=== PATIENT | male | born 1980 | race Caucasian/White ===

== ENCOUNTER 2017-12-01 11:37 | Emergency (ER) | payer MEDICAID ==
[~2017-12-01] VITALS: Ht 172.7 cm; Wt 63.4 kg
[~2017-12-01 11:37] MED LIST: DEXT15DR7 EACHEYE; IBUP-1051 PO; NO HOME MEDS
[2017-12-01 11:50] VITALS: BP 117/83
[2017-12-01] MEDS ORDERED: TRIA15CR61 TOP (12:43)
== END 2017-12-01 12:52 | disposition home or self-care (01) ==
LOC: ER 11:38
DX: R21 Rash and other nonspecific skin eruption (principal); F15.10 Other stimulant abuse, uncomplicated; M79.641 Pain in right hand; R22.31 Localized swelling, mass and lump, right upper limb; E11.9 Type 2 diabetes mellitus without complications; F17.200 Nicotine dependence, unspecified, uncomplicated; F12.10 Cannabis abuse, uncomplicated; Z79.899 Other long term (current) drug therapy
CPT/HCPCS: 99283

== ENCOUNTER 2019-10-10 09:35 | Emergency (ER) | payer MEDICAID ==
[~2019-10-10] VITALS: Ht 172.7 cm; Wt 68.8 kg
[2019-10-10] MEDS ORDERED: normal saline 1000ML IV soln IVB ONE ×2 (10:30→11:05)
[2019-10-10 10:42] LABS: CLARITY,URINE CLEAR (Clear); COLOR,URINE YELLOW (Yellow); GLUCOSE, URINE >=1000 mg/dl (Neg); KETONES,URINE >=80 mg/dl (Neg); LEUKOCYTE ESTERASE ,URINE NEGATIVE (Neg); NITRITES, URINE NEGATIVE (Neg); OCCULT BLOOD,URINE NEGATIVE (Neg); PROTEIN,URINE NEGATIVE (Neg); UROBILINOGEN,URINE 0.2 E.U/dL (0.2-1.0)
[2019-10-10 10:47] LABS: UA COLLECTION TYPE CLN CATCH MIDSTREAM
[2019-10-10 10:48] LABS: BACTERIA,URINE NONE SEEN /HPF (Neg); MUCUS STRANDS NONE SEEN /LPF (Neg); RBC,URINE 0-2 /HPF (0-2); SQUAMOUS EPITHELIAL CELL,UR NONE SEEN /LPF (FEW); WBC,URINE NONE SEEN /HPF (0-4)
[2019-10-10 10:49] LABS: BASOPHILS % (AUTO) 0.5 % (0-1); EOSINOPHILS # (AUTO) 0.1 X10'3 (0-0.9); EOSINOPHILS % (AUTO) 1.8 % (0-6); HEMOGLOBIN 17.8 g/dl (14.0-17.9); LYMPHOCYTES # (AUTO) 1.8 X10'3 (1.1-4.8); LYMPHOCYTES % (AUTO) 30.8 % (21-51); MEAN CORPUSCULAR HEMOGLOBIN 30.8 PG (27.0-31.0); MEAN CORPUSCULAR HGB CONC 34.2 g/dL (33.0-36.5); MEAN CORPUSCULAR VOLUME 89.9 FL (78-98); MEAN PLATELET VOLUME 8.8 FL (7.4-10.4); MONOCYTES # (AUTO) 0.5 X10'3 (0-0.9); MONOCYTES % (AUTO) 8.4 % (2-12); NEUTROPHILS # (AUTO) 3.4 X10'3 (1.8-7.7); NEUTROPHILS % (AUTO) 58.5 % (42-75); PLATELET COUNT 245 X10'3 (140-440); RED BLOOD COUNT 5.78 X10'6 (4.70-6.10); RED CELL DISTRIBUTION WIDTH 13.1 % (11.5-14.5); WHITE BLOOD COUNT 5.7 X10'3 (4.5-11.0)
[2019-10-10 10:52] LABS: ALANINE AMINOTRANSFERASE 31 U/L (12-78); ALBUMIN 3.8 G/DL (3.4-5.0); ALBUMIN/GLOBULIN RATIO 1.1 (1.1-1.5); ALKALINE PHOSPHATASE 84 IU/L (46-116); ANION GAP 9 (8-16); ASPARTATE AMINO TRANSFERASE 15 U/L (10-37); BILIRUBIN,TOTAL 0.6 MG/DL (0.1-1.0); BLOOD UREA NITROGEN 11 MG/DL (7-18); BUN/CREATININE RATIO 12.1 (5.4-32.0); CHLORIDE 96 MMOL/L (99-107); CREATININE 0.91 MG/DL (0.60-1.10); GLUCOSE 394 MG/DL (70-104); LIPASE 250 U/L (73-393); POTASSIUM 4.5 MMOL/L (3.5-5.1); SODIUM 134 MMOL/L (135-145); TOTAL CARBON DIOXIDE 28.9 MMOL/L (24-32); TOTAL PROTEIN 7.4 G/DL (6.4-8.2); eGFR > 90 ML/MIN
[2019-10-10] MEDS ORDERED: insulin regular, human 10 units/0.1 ml syringe SQ ONE (11:00)
[2019-10-10] MEDS ORDERED: insulin regular, human U-100 3ml vial - multi-dose SQ ONE ×2 (11:00→12:15)
[2019-10-10] MEDS ORDERED: INSU100I31 SQ (12:38)
[2019-10-10] MEDS ORDERED: INSU100I39 SQ (12:38)
[2019-10-10 13:33] VITALS: BP 120/78
== END 2019-10-10 13:43 | disposition home or self-care (01) ==
LOC: ER 09:36
DX: E11.65 Type 2 diabetes mellitus with hyperglycemia (principal); Z76.0 Encounter for issue of repeat prescription; F17.210 Nicotine dependence, cigarettes, uncomplicated; F12.90 Cannabis use, unspecified, uncomplicated; F15.90 Other stimulant use, unspecified, uncomplicated; Z79.899 Other long term (current) drug therapy
CPT/HCPCS: 36415; 80053; 81001; 82948; 83690; 85025; 96360; 96361; 96372; 99284; J7030; J1815

== ENCOUNTER 2019-11-11 09:58 | Emergency (ER) | payer MEDICAID ==
[~2019-11-11] VITALS: Ht 172.7 cm; Wt 68.0 kg
[~2019-11-11 09:58] MED LIST changes: +INSU100I31 SQ; +INSU100I39 SQ
--- NOTE | 2019-11-11 10:22 | NUR ---
Provider is at the bedside with the patient.
[2019-11-11] MEDS ORDERED: INSU100I31 SQ (10:34)
[2019-11-11] MEDS ORDERED: INSU100I39 SQ (10:34)
[2019-11-11] MEDS ORDERED: GABA600T13 PO (10:34)
[2019-11-11] MEDS ORDERED: TRAZ-256 PO (10:35)
[2019-11-11 11:07] VITALS: BP 149/98
== END 2019-11-11 10:51 | disposition home or self-care (01) ==
LOC: ER 09:58
DX: E11.40 Type 2 diabetes mellitus with diabetic neuropathy, unspecified (principal); F12.90 Cannabis use, unspecified, uncomplicated; F15.90 Other stimulant use, unspecified, uncomplicated; Z76.0 Encounter for issue of repeat prescription; Z79.899 Other long term (current) drug therapy; Z79.4 Long term (current) use of insulin
CPT/HCPCS: 82948; 99282

== ENCOUNTER 2025-03-05 13:43 | Emergency (ER) | payer BC, MEDICAID ==
[~2025-03-05] VITALS: Ht 172.7 cm; Wt 105.6 kg
[~2025-03-05 13:43] MED LIST changes: +GABA-1405 PO; +TRAZ-256 PO
[2025-03-05 13:49] VITALS: BP 119/87; PULSE 76; TEMP 98.6; O2SAT 97
--- NOTE | 2025-03-05 15:04 | RADIOLOGY REPORT ---
EXAM: DI HAND,LIMITED (AP/LAT) REASON FOR EXAM: TRauma and laceration TECHNIQUE: PA and lateral views of the left hand are submitted for review. COMPARISON: None FINDINGS: There is acute, nondisplaced fracture of the distal tuft of the 4th distal phalanx. There is no retained radiopaque foreign body. There is mild soft tissue swelling at the distal aspect of th e 4th finger. IMPRESSION: Acute nondisplaced fracture of the distal tuft of the 4th distal phalanx.
[2025-03-05] MEDS: LIDOcaine 1% 30ml preserv. free vial IJ STA (15:42)
--- NOTE | 2025-03-05 15:47 | Physician Documentation ---
History of Present Illness ~ Chief Complaint: Laceration Stated Complaint: FINGER LAC Time Seen by MD: 14:37 Primary Medical Doctor: shahbaz [facility] Patient is a 44-year-old gentleman that presents to the emergency department for evaluation of a laceration to the ring finger of his left hand. Patient reports that he was working on his quad earlier today when he caught his finger between the chain in the spoke lacerating the finger and causing trauma to the the distal end of the finger. Patient reports the bleeding is currently controlled. Patient reports he is not up-to-date on his tetanus immunization. Tetanus Within 5 Years: No Medication Reconciliation Allergies: Coded Allergies: No Known Allergies (Unverified , 11/12/10) Scheduled Dextran 70/Hypromellose (Artificial Tears Eye Drops), 1 DROP EACHEYE QID Gabapentin (Gabapentin), 1 TAB PO Q8H Insulin Glargine,Hum.rec.anlog (Basaglar Kwikpen U-100), 40 UNIT SQ DAILY Insulin Glargine,Hum.rec.anlog (Basaglar Kwikpen U-100), 40 UNIT SQ HS Insulin Lispro (Admelog Solostar), 10 UNIT SQ AC Insulin Lispro (Admelog Solostar), 10 UNITS SQ TIDWM Trazodone HCl (Trazodone HCl), 1 TAB PO HS Scheduled PRN Ibuprofen* (Motrin*), 800 MG PO TID PRN Miscellaneous Medications Home Med List (No Home Medications), (Reported) Past Medical History Past Medical History: Diabetes Past Surgical History: no surgical history Alcohol Use: None Drug Use: marijuana, methamphetamine Lives with: Family Lives In: Home Occupation: employed Review of Systems ROS As stated above in the HPI, otherwise all systems are reviewed and negative. Physical Exam Vital Signs: Temperature: 98.6, Source: Temporal, Heart Rate: 76, Respiratory Rate: 15, BP: 119/87, Pulse Oximetry: 97, Weight: 105.600 Physical Exam VITALS: Reviewed and as above. GENERAL: Alert, no apparent distress. HEENT: Normocephalic, atraumatic, PERRL, EOMI, dry mucosa, no erythema RESPIRATORY: Lungs clear, normal breath sounds, no respiratory distress. CHEST: No accessory muscle use, no retractions CV: Regular rate, rhythm, no edema, no murmur, No: JVD GI: Soft, non-tender, bowels sounds present, no rebound, guarding, or rigidity BACK: No CVA tenderness, or swelling MUSCULOSKELETAL No deformities, edema to the 3rd digit of the left hand associated with trauma. SKIN: Warm and dry, laceration to the 3rd digit of the left hand, swelling to the 3rd digit of the left hand. NEURO: Oriented x4, No motor or sensory deficit PSYCH: Normal mood and affect, no agitation Procedures Laceration/Wound Repair Laceration : Length (cm): 1.25 Anesthesia: Lidocaine Prep: betadine, irrigated by nurse, irrigated by physician, scrubbed Irrigated w/ Saline (mls): 100 Debrided: minimal Undermining: none Margins: flaps aligned Foreign Body: not identified Repaired: skin, subcutaneous Wound Repaired With: sutures Suture Size/Type: 4-0, nylon Number of Superficial Sutures: 5 Dressing Applied: simple Splint Applied?: Yes Type of Splint Applied: Aluminum finger splint Tolerated Procedure Well?: yes, no complications Progress Results/Orders Results/Orders Orders - MARYA GAR AUDIO VIDEO TECH Hand,Limited (Ap/Lat) (03/05/25 14:42) Completed Orders - MARYA GAR AUDIO VIDEO TECH Hand,Limited (Ap/Lat) (03/05/25 14:42) Lidocaine 1% 30ml Vial (Xylocaine 1% Via (03/05/25 14:51) Vital Signs 03/05/25 13:49 Temp 98.6 Pulse 76 Resp 15 B/P (MAP) 119/87 Pulse Ox 97 Medical Decision Making Findings Wound inspected under direct bright light with good visualization. Area with linear laceration across soft tissue through adipose without exposure of muscle belly or tendon. No overt foreign body. Area hemostatic. Neurovascular exam congruent with above. Area extensively irrigated with sterile normal saline under pressure. Laceration repaired in simple fashion as below (please see procedure note for further details). Patient tolerated procedure well and neurovascular exam intact and unchanged post repair with intact distal pulses and cap refill. Cautious return precautions discussed w/ full understanding. Wound care discussed. Prompt follow up with primary care physician discussed and return for suture removal in 7-10 days. Follow up with Orthopedics. With your primary care provider. Return to the emergency department with any worsening or recurrent symptoms or any additional concerning symptoms that we discussed here today i.e. increased swelling increased redness purulent drainage fevers or any other concerning symptoms. Differential Dx:Considerations: Include: Abrasion, Avulsion, Contusion, Laceration, Fracture, Hematoma, Neurovascular injury, Retained foreign body, Other Departure Disposition: 01 HOME / SELF CARE / HOMELESS Impression: Primary Impression: Laceration Additional Impressions: Swelling Pain Fracture of finger Condition: Stable Additional Instructions: Wound inspected under direct bright light with good visualization. Area with linear laceration across soft tissue through adipose without exposure of muscle belly or tendon. No overt foreign body. Area hemostatic. Neurovascular exam congruent with above. Area extensively irrigated with sterile normal saline under pressure. Laceration repaired in simple fashion as below (please see procedure note for further details). Patient tolerated procedure well and neurovascular exam intact and unchanged post repair with intact distal pulses and cap refill. Cautious return precautions discussed w/ full understanding. Wound care discussed. Prompt follow up with primary care physician discussed and return for suture removal in 7-10 days. Follow up with Orthopedics. With your primary care provider. Return to the emergency department with any worsening or recurrent symptoms or any additional concerning symptoms that we discussed here today i.e. increased swelling increased redness purulent drainage fevers or any other concerning symptoms. Take your antibiotics as prescribed. Please take your pain medication as prescribed. [facility]: [phone] Referrals: NO PRIMARY CARE PROVIDER (PCP) Prescriptions Hydrocodone Bit/Acetaminophen 5/325 MG ([place] 5/325 MG) 5 Mg/325 Mg Tablet 1 TAB PO Q6H PRN for pain for 3 Days, #12 TAB Prov: MARYA GAR 03/05/25 Cephalexin*Monohydrate* (Keflex*) 500 Mg Capsule 1 CAP PO QID for 7 Days, #28 CAP Prov: MARYA GAR 03/05/25 Education Educated: Patient Educated regarding: diagnosis, treatment, need for follow up Signature Scribe Signature: A Attestation: Scribed for Marya Gar by KAT Garcia . 03/05/25 16:22 MARYA GAR Mar 05, 2025 15:47
[2025-03-05] MEDS ORDERED: CEPH-585 PO (16:19)
[2025-03-05] MEDS ORDERED: HYDR-3965 PO (16:19)
[2025-03-05] MEDS: TETanus/Pertussis (Acell)/Diphther VAC/PF (Tdap-Adult) 0.5ml syringe IMVAC ONE (16:42)
[2025-03-05 17:11] VITALS: RESP 16
[2025-03-05] MEDS: HYDROcodone/acetaminophen 5mg/325mg tablet PO ONE (17:11)
[2025-03-05] MEDS: CefTRIAXone 1000mg IM Kit (w/lidocaine diluent) IM ONE (17:24)
== END 2025-03-05 17:26 | disposition home or self-care (01) ==
LOC: ER 13:43
DX: S62.635A Displaced fracture of distal phalanx of left ring finger, initial encounter for closed fracture (principal); S61.215A Laceration without foreign body of left ring finger without damage to nail, initial encounter; E11.9 Type 2 diabetes mellitus without complications; Z79.899 Other long term (current) drug therapy; F12.90 Cannabis use, unspecified, uncomplicated; F15.90 Other stimulant use, unspecified, uncomplicated; X58.XXXA Exposure to other specified factors, initial encounter; Y93.9 Activity, unspecified; Y92.89 Other specified places as the place of occurrence of the external cause; Y99.8 Other external cause status
CPT/HCPCS: 12031; 73120; 90471; 90715; 96372; 99284; J0696; 12001; A6258; A6449